=== PATIENT | female | born 1940 | race Caucasian/White ===

== ENCOUNTER 2016-09-20 13:50 | Emergency (ER) | payer MEDICARE, OTHER ==
[~2016-09-20] VITALS: Ht 167.6 cm; Wt 90.0 kg
[2016-09-20 13:57] VITALS: Ht 167.6 cm; Wt 90.0 kg
[2016-09-20] MEDS ORDERED: BENA5TAB2 PO (14:08)
[2016-09-20] MEDS ORDERED: METO-448 PO (14:09)
[2016-09-20] MEDS ORDERED: LANT3I SC (14:09)
[2016-09-20] MEDS ORDERED: SITA1TAB5 PO (14:09)
[2016-09-20] MEDS ORDERED: SOD CHLORIDE 0.9% 1,000 ML IV STA (14:14)
[2016-09-20 14:36] LABS: ADD SCAN DIFF NO
[2016-09-20 14:43] LABS: BASOPHILS % 0.4 % (0.0-2.0); EOSINOPHILS # 0.2 10^3/ul (0.0-0.5); EOSINOPHILS % 2.1 % (0.0-7.0); HEMATOCRIT 37.5 % (37.0-47.0); HEMOGLOBIN 12.2 g/dl (12.0-16.0); LYMPHOCYTES # 2.9 10^3/ul (0.8-2.9); LYMPHOCYTES % 27.5 % (15.0-51.0); MEAN CORPUSCULAR HEMOGLOBIN 28.9 pg (29.0-33.0); MEAN CORPUSCULAR HGB CONC 32.5 g/dl (32.0-37.0); MEAN CORPUSCULAR VOLUME 88.9 fl (82.0-101.0); MEAN PLATELET VOLUME 9.7 fl (7.4-10.4); MONOCYTE # 0.8 10^3/ul (0.3-0.9); MONOCYTES % 7.3 % (0.0-11.0); NEUTROPHIL # 6.4 10^3/ul (1.6-7.5); NEUTROPHILS % 61.9 % (39.0-77.0); PLATELET COUNT 333 10^3/UL (140-415); RED BLOOD COUNT 4.22 10^6/ul (4.20-5.40); WHITE BLOOD COUNT 10.4 10^3/ul (4.8-10.8)
[2016-09-20 14:49] LABS: CHLORIDE 104 mmol/L (97-110); POTASSIUM 4.2 mmol/L (3.5-5.1); SODIUM 143 mmol/L (135-144)
--- NOTE | 2016-09-20 14:49 | RADRPT ---
PROCEDURE: XR Chest. CLINICAL INDICATION: Shortness of breath. Cerebrovascular accident. TECHNIQUE: Single frontal view. COMPARISON: None. FINDINGS: The lungs are clear. The heart size is normal. There is no pleural effusion. There is no pneumothorax. IMPRESSION: 1. Normal chest radiograph. RPTAT: QQ .Eulogio Mendez MD, MD Date Time Electronically viewed and signed by .Eulogio Mendez MD, MD on 09/20/2016 14:49 .R/
[2016-09-20 14:51] LABS: CREATININE 0.73 mg/dl (0.44-1.00)
[2016-09-20 14:52] LABS: ANION GAP 20 (8-16); BLOOD UREA NITROGEN 13 mg/dl (7-20); CALCIUM 9.4 mg/dl (8.4-10.2); CARBON DIOXIDE 23 mmol/L (21-31); GLUCOSE 201 mg/dl (70-220)
[2016-09-20 14:59] LABS: INR 0.91; PROTIME 12.3 Sec (12.2-14.2)
[2016-09-20 15:00] LABS: PARTIAL THROMBOPLASTIN TIME 28.9 Sec (25.0-35.0)
[2016-09-20 15:05] LABS: TROPONIN-I < 0.012 ng/ml (0.00-0.12)
--- NOTE | 2016-09-20 16:02 | RADRPT ---
PROCEDURE: CT brain without contrast CLINICAL INDICATION: High blood pressure, dizziness, possible stroke TECHNIQUE: CT of the brain without contrast performed on a multidetector CT scanner, with multiplan ar reformats. One or more of the following dose reduction techniques were used: Automated exposure control, adjustment in mA and / or kV according to patient size, use of iterative reconstructive wayne hnique. CTDIvol = 44 mGy; DLP = 720 mGy-cm. COMPARISON: None available FINDINGS: No acute intracranial hemorrhage is identified. No extra-axial fluid collection is seen. There is no mass effect. No midline shift is identified. Ventricles and sulci are mildly enlarged compatible with generalized volume loss. There are minimal areas of hypodensity in the periventricular - deep white matter which are nonspeci fic but suggestive of chronic small vessel ischemic changes. Ramírez-white differentiation is preserve d. Atherosclerotic calcifications of the intracranial internal carotid arteries are noted. Osseous structures are unremarkable. Mastoid air cells and imaged paranasal sinuses grossly clear. IMPRESSION: 1. No acute intracranial pathology identified. Consider follow up with MRI. 2. Mild generalized volume loss, with minimal chronic small vessel ischemic changes. RPTAT: TT .Cain Valladares MD, Date Time Electronically viewed and signed by .Cain Valladares MD, MD on 09/20/2016 16:01 .O/
[2016-09-20] MEDS ORDERED: ASPIRIN 325 MG TAB PO ONE (16:30)
[2016-09-20] MEDS ORDERED: ONDANSETRON 4 MG INJ IV PRN (16:30)
[2016-09-20] MEDS ORDERED: ACETAMINOPHEN 325 MG TAB PO PRN (16:30)
[2016-09-20 16:43] LABS: ADD UMIC NO; URINE BILIRUBIN (Dip) NEGATIVE (NEGATIVE); URINE BLOOD (Dip) NEGATIVE (NEGATIVE); URINE COLOR LT. YELLOW (YELLOW); URINE GLUCOSE (Dip) NEGATIVE (NEGATIVE); URINE KETONES (Dip) NEGATIVE (NEGATIVE); URINE LEUKOCYTE ESTERASE (Dip) NEGATIVE (NEGATIVE); URINE NITRITE (Dip) NEGATIVE (NEGATIVE); URINE TOTAL PROTEIN (Dip) NEGATIVE (NEGATIVE); URINE UROBILINOGEN (Dip) 0.2 E.U./dL (0.1-1.0)
[2016-09-20 16:50] VITALS: BP 144/93; PULSE 78; RESP 16; TEMP 97.6
[2016-09-20 17:02] LABS: BARBITURATES Negative (NEGATIVE); BENZODIAZEPINES Negative (NEGATIVE)
[2016-09-20 17:05] LABS: CANNABINOIDS Negative (NEGATIVE); COCAINE Negative (NEGATIVE); OPIATES Negative (NEGATIVE)
--- NOTE | 2016-09-20 18:35 | ERD ---
ER Documentation Chief Complaint Date/Time DATE: 09/20/16 TIME: 18:32 Chief Complaint BIB RA FOR EVAL OF GENERALIZED WEAKNESS. NO NEURO DEFICITS NOTED. HPI Patient is a 76-year-old female with coronary disease, previous stroke, hypertension, diabetes, and high cholesterol who presents with weakness and dizziness. She also has chest pain. Her symptoms started at 2:30 AM. The chest pain was pressure in nature. Patient was brought in by ambulance. She has no one-sided weakness. She did have slurred speech initially but that has disappeared. Her primary doctor is Dr. Amador. ROS All systems reviewed and are negative except as per history of present illness. Medications Home Meds Reported Medications Insulin Glargine* (Lantus*) 100 Unit/Ml Soln, 20 UNIT SC QAM, #1 VIAL 09/20/16 Sitagliptin Phos/Metformin HCl (Janumet 50-1,000 mg Tablet) 1 Each Tablet, 1 EACH PO DAILY, TAB 09/20/16 Metoprolol Tartrate* (Lopressor*) Unknown Strength Tab, PO BID, #60 TAB 09/20/16 Benazepril Hcl* (Benazepril Hcl*) Unknown Strength Tablet, PO DAILY, #30 TAB 09/20/16 Allergies Allergies: Coded Allergies: iodine (Verified Allergy, Severe, 09/20/16) PMhx/Soc History of Surgery: Yes (Bilateral knee replacement, Galdbladder removal) Hx Cardiac Disorders: Yes (HTN) Hx Alcohol Use: No Hx Substance Use: No Hx Tobacco Use: No Smoking Status: Never smoker FmHx Family History: No diabetes Physical Exam Vitals Vital Signs Date Time Temp Pulse Resp B/P Pulse Ox O2 Delivery O2 Flow Rate FiO2 09/20/16 16:50 97.6 78 16 144/93 100 Room Air 09/20/16 16:15 98.6 78 18 143/68 100 Room Air 09/20/16 14:20 Nasal Cannula 3 09/20/16 13:57 98.1 90 18 181/80 98 Physical Exam Const: No acute distress Head: Atraumatic Eyes: Normal Conjunctiva ENT: Normal External Ears, Nose and Mouth. Neck: Full range of motion..~ No meningismus. Resp: Clear to auscultation bilaterally Cardio: Regular rate and rhythm, no murmurs Abd: Soft, non tender, non distended. Normal bowel sounds Skin: No petechiae or rashes Back: No midline or flank tenderness Ext: No cyanosis, or edema Neur: Awake and alert, no slurred speech, no weakness of the upper or lower extremities, cranial nerves II through XII are intact Psych: Normal Mood and Affect Result Diagram: 09/20/16 1413 09/20/16 1413 Results 24 hrs Laboratory Tests Test 09/20/16 13:54 09/20/16 14:13 09/20/16 16:16 Bedside Glucose 197mg/dL Activated Partial Thromboplast Time 28.9Sec Anion Gap 20 Basophils # 0.010^3/ul Basophils % 0.4% Blood Urea Nitrogen 13mg/dl Calcium Level 9.4mg/dl Carbon Dioxide Level 23mmol/L Chloride Level 104mmol/L Creatinine 0.73mg/dl Eosinophils # 0.210^3/ul Eosinophils % 2.1% Glucose Level 201mg/dl Hematocrit 37.5% Hemoglobin 12.2g/dl Hemoglobin A1c 9.0% INR International Normalized Ratio 0.91 Lymphocytes # 2.910^3/ul Lymphocytes % 27.5% Mean Corpuscular Hemoglobin 28.9pg Mean Corpuscular Hemoglobin Concent 32.5g/dl Mean Corpuscular Volume 88.9fl Mean Platelet Volume 9.7fl Monocytes # 0.810^3/ul Monocytes % 7.3% Neutrophils # 6.410^3/ul Neutrophils % 61.9% Nucleated Red Blood Cells # 0.010^3/ul Nucleated Red Blood Cells % 0.0/100WBC Platelet Count 68599^3/UL Potassium Level 4.2mmol/L Prothrombin Time 12.3Sec Prothrombin Time Ratio 1.0 Red Blood Count 4.2210^6/ul Red Cell Distribution Width 13.0% Sodium Level 143mmol/L Troponin I < 0.012ng/ml White Blood Count 10.410^3/ul Urine Amphetamines Screen Negative Urine Barbiturates Negative Urine Benzodiazepines Screen Negative Urine Bilirubin NEGATIVE Urine Cannabinoids Negative Urine Clarity CLEAR Urine Cocaine Screen Negative Urine Color LT. YELLOW Urine Glucose NEGATIVE% Urine Hemoglobin NEGATIVE Urine Ketones NEGATIVE Urine Leukocyte Esterase NEGATIVE Urine Nitrite NEGATIVE Urine Opiates Screen Negative Urine Specific [place] >=1.030 Urine Total Protein NEGATIVE Urine Urobilinogen 0.2 E.U./dL Urine pH 6.0 Current Medications Medications (Trade) Dose Ordered Sig/Reid Route PRN Reason Start Time Stop Time Status Last Admin Dose Admin Sodium Chloride (NS) 1,000 ml @ 1,000 mls/hr Q1H STAT IV 09/20/16 14:14 09/20/16 15:13 DC 09/20/16 14:27 Aspirin (Aspirin) 325 mg ONCE ONCE PO 09/20/16 16:30 09/20/16 16:31 DC 09/20/16 16:37 Ondansetron HCl (Zofran Inj) 4 mg ER BRIDGE PRN IV NAUSEA AND/OR VOMITING 09/20/16 16:30 09/20/16 16:53 DC Acetaminophen (Tylenol Tab) 650 mg ER BRIDGE PRN PO MILD PAIN/FEVER 09/20/16 16:30 09/20/16 16:53 DC Procedures/MDM CT head shows no acute process per radiology. EKG read by me: Rate/Rhythm: Regular rate and rhythm at a normal rate Intervals: Normal Impression: No evidence of ischemia or arrhythmia Patient is a 76-year-old female with multiple risk factors who presents with chest pain and dizziness. I am concerned about a possible TIA and I gave aspirin after CT head was negative. The patient also is a possibility for acute coronary syndrome. I wanted to admit the patient to a telemetry bed and I spoke with Dr. Oconnor for admission. However after the patient was admitted she decided she did not want to stay and wanted to sign out AGAINST MEDICAL ADVICE. I did explain to her the risks of signing out AGAINST MEDICAL ADVICE including myocardial infarction, stroke, or . She understands these risks and still wants to sign out AGAINST MEDICAL ADVICE. She should follow-up with her primary doctor as soon as possible for reevaluation. She can return sooner for any worsening symptoms. Departure Diagnosis: Primary Impression: TIA (transient ischemic attack) Transient cerebral ischemia type: unspecified Qualified Code: G45.9 - Transient cerebral ischemia, unspecified type Additional Impression: Chest pain Chest pain type: unspecified Qualified Code: R07.9 - Chest pain, unspecified type Condition: Fair Patient Instructions: Transient Ischemic Attack (TIA), Chest Pain, Uncertain Cause Referrals: Your doctor Additional Instructions: Call your primary care doctor TOMORROW for an appointment during the next 1-2 days.See the doctor sooner or return here if your condition worsens before your appointment time. VIRIDIANA GOFF MD Sep 20, 2016 18:35
== END 2016-09-20 16:53 | disposition left against medical advice (07) ==
LOC: E/R 13:50
DX: G45.9 Transient cerebral ischemic attack, unspecified (principal); R07.9 Chest pain, unspecified; I10 Essential (primary) hypertension; Z79.4 Long term (current) use of insulin; Z79.84 Long term (current) use of oral hypoglycemic drugs; Z96.653 Presence of artificial knee joint, bilateral
CPT/HCPCS: 36415; 70450; 71010; 80048; 80307; 81003; 82962; 83036; 84484; 85025; 85610; 85730; 93005; 99285; J7030

== ENCOUNTER 2017-10-18 07:44 | Inpatient (IN) | END 2017-10-20 10:50 | disposition home or self-care (01) | DRG 246 ==

== ENCOUNTER 2017-11-22 07:57 | Day surgery (SDC) | END 2017-11-22 18:15 | disposition home or self-care (01) ==